=== PATIENT | female | born 1965 | race African-American/Black ===

== ENCOUNTER 2024-06-16 04:24 | Day surgery (SDC) | payer OTHER, BC ==
[2024-06-14 11:45] VITALS: BMI 25.7
[2024-06-16] MEDS ORDERED: LIDOCAINE HCL/PF 1% SDV 5ML VIAL ONE (07:19)
[2024-06-16 07:54] VITALS: RESP 20
[2024-06-16] MEDS ORDERED: ACETAMINOPHEN 500 MG TABLET (FP) PO PRN (08:32)
[2024-06-16] MEDS: LIDOCAINE HCL 1% PRESERVATIVE FREE - 30ML VIAL IJ ONE ×2 (09:06)
[2024-06-16] MEDS: IOHEXOL 180 MG/1 ML ML IJ ONE ×3 (09:08)
[2024-06-16] MEDS: DEXAMETHASONE SOD PHOSPHATE 10 MG/1 ML VIAL IM ONE ×2 (09:12)
[2024-06-16 14:44] VITALS: BP 115/75; PULSE 67; TEMP 97.5
== END 2024-06-16 10:40 | disposition home or self-care (01) ==
LOC: JASU-SURG 04:24
PROVIDERS: ATTEND Pain Medicine Pain Medicine
PROC: 3E0R3BZ Introduction of Anesthetic Agent into Spinal Canal, Percutaneous Approach (ICD-10-PCS; 2024-06-16)
PROC: 3E0R33Z Introduction of Anti-inflammatory into Spinal Canal, Percutaneous Approach (ICD-10-PCS; principal; 2024-06-16 09:00)
DX: M48.061 Spinal stenosis, lumbar region without neurogenic claudication (principal); M54.16 Radiculopathy, lumbar region
CPT/HCPCS: 76000-TC-FY; J1100